=== PATIENT | female | born 1985 | race Two or more races ===

== ENCOUNTER 2023-11-17 23:40 | Emergency (ER) | payer OTHER ==
[2023-11-17 23:44] VITALS: BP 126/82; PULSE 82; RESP 20; TEMP 98.3; BMI 23.4
[2023-11-18 00:40] LABS: EOS % 1.5 % (0-4.5); HEMATOCRIT 38.9 % (32.4-45.2); HEMOGLOBIN 13.2 GM/dL (10.7-15.3); LYMPH % 44.2 % (8-40); MCH 29.8 pg (25.7-33.7); MCHC 34.1 g/dl (32.0-36.0); MEAN CELL VOLUME 87.6 fl (80-96); MEAN PLT VOLUME 9.9 fl (7.5-11.1); MONO % 7.4 % (3.8-10.2); NEUT % 45.9 % (42.8-82.8); PLATELET COUNT 268 10^3/uL (134-434); RBC 4.44 M/mm3 (3.60-5.2); RDW 13.4 % (11.6-15.6); WHITE BLOOD COUNT 6.5 K/mm3 (4.0-10.0)
[2023-11-18 01:42] LABS: POTASSIUM 4.1 mmol/L (3.5-5.1)
[2023-11-18 01:45] LABS: BLOOD UREA NITROGEN 13.7 mg/dL (7-18)
[2023-11-18 01:48] LABS: CREATININE 0.9 mg/dL (0.55-1.3)
[2023-11-18 01:49] LABS: BILIRUBIN,TOTAL 0.4 mg/dL (0.2-1); TOT PROT 7.6 g/dl (6.4-8.2)
[2023-11-18 02:30] LABS: PH,URINE 7.5 (5.0-8.0); URINE APPEARANCE CLEAR; URINE BILIRUBIN NEGATIVE (NEGATIVE); URINE COLOR YELLOW; URINE GLUCOSE (UA) NEGATIVE (NEGATIVE); URINE KETONE NEGATIVE (NEGATIVE); URINE LEUK ESTERASE NEGATIVE (NEGATIVE); URINE NITRITE NEGATIVE (NEGATIVE); URINE PROTEIN NEGATIVE (NEGATIVE); URINE UROBILINOGEN 0.2 mg/dL (0.2-1.0)
== END 2023-11-18 04:31 | disposition home or self-care (01) ==
LOC: JER 23:40
DX: R07.1 Chest pain on breathing (principal); R10.9 Unspecified abdominal pain; M54.50 Low back pain, unspecified; K59.00 Constipation, unspecified
CPT/HCPCS: 36415; 71046-TC-FY; 74176-TC; 80053; 81003; 84484; 84703; 85025; 85379; 93005; 93010; 99285-25